=== PATIENT | female | born 2005 | race Two or more races ===

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

== ENCOUNTER 2024-08-21 00:52 | Emergency (ER) | payer BC, MEDICAID ==
[~2024-08-21] VITALS: Ht 165.1 cm; Wt 68.0 kg
[2024-08-21 01:33] VITALS: BP 132/70; TEMP 98.7; O2SAT 98
[2024-08-21] MEDS ORDERED: AMOX500C2 PO (01:38)
[2024-08-21] MEDS ORDERED: AMOX/CLAVULANATE 250 MG TABLET ONE (01:40)
[2024-08-21] MEDS ORDERED: AMOXICILLIN TRIHYDRATE 250 MG CAPSULE ONE (01:42)
[2024-08-21] MEDS: AMOXICILLIN TRIHYDRATE 500 MG CAPSULE PO ONE (01:46)
== END 2024-08-21 01:47 | disposition home or self-care (01) ==
LOC: ER 00:54
DX: J02.0 Streptococcal pharyngitis (principal)

== ENCOUNTER 2024-08-29 23:12 | Emergency (ER) | payer MEDICAID ==
[~2024-08-29] VITALS: Ht 170.2 cm; Wt 67.1 kg
[~2024-08-29 23:12] MED LIST: AMOX500C2 PO
[2024-08-29] MEDS ORDERED: predniSONE 20 MG TABLET ONE (23:44)
[2024-08-29] MEDS: predniSONE 50 MG TABLET PO ONE (23:47)
[2024-08-30] VITALS: BP 123/79; TEMP 98.3; O2SAT 98
[2024-08-30 02:05] LABS: MONOTEST POSITIVE (NEGATIVE)
[2024-08-30] MEDS ORDERED: AZIT1PAC9 PO ×2 (02:12→15:17)
[2024-08-30] MEDS ORDERED: PRED20TA PO ×2 (02:12→15:17)
[2024-08-30] MEDS ORDERED: diphenhydrAMINE HCL 50 MG CAPSULE ONE (02:19)
[2024-08-30] MEDS: diphenhydrAMINE HCL 25 MG CAPSULE PO ONE (02:26)
== END 2024-08-30 02:35 | disposition home or self-care (01) ==
LOC: ER 23:19
DX: R21 Rash and other nonspecific skin eruption (principal); B27.90 Infectious mononucleosis, unspecified without complication; J02.9 Acute pharyngitis, unspecified; Z79.52 Long term (current) use of systemic steroids; Z88.0 Allergy status to penicillin
CPT/HCPCS: 99283; 86308; 36415; J7512; Q0163